=== PATIENT | female | born 1975 | race Two or more races ===

== ENCOUNTER 2017-09-22 12:28 | Inpatient (IN) | payer MEDICAID ==
[~2017-09-22] VITALS: Ht 157.5 cm; Wt 166.2 kg
[2017-09-22 13:30] LABS: BASOPHIL % 0.4 % (0-2); PLATELET COUNT 288 x10^3mcL (130-400)
[2017-09-22 13:31] LABS: RED CELL DISTRIBUTION WIDTH 21.8 % (11.5-14.5)
[2017-09-22 13:33] LABS: rbc morphology (normal/abnorm) ABNORMAL (NORMAL)
[2017-09-22 13:41] LABS: CALCIUM 8.5 mg/dL (8.5-10.1); CARBON DIOXIDE 28.2 mmol/L (21-32); CHLORIDE SERUM 100 mmol/L (98-107); CREATININE SERUM 0.8 mg/dL (0.6-1.0); GFR1 > 60 mL/min; GLUCOSE SERUM 276 mg/dL (74-106); POTASSIUM SERUM 3.7 mmol/L (3.5-5.1); SODIUM SERUM 136 mmol/L (136-145)
[2017-09-22 15:24] LABS: UA SPECIFIC GRAVITY >=1.030 (1.005-1.035); microscopic required? YES; urine erythrocyte 2+ (NEGATIVE)
[2017-09-22 15:26] VITALS: BP 133/51
[2017-09-22 15:33] VITALS: Ht 157.5 cm; Wt 166.2 kg
[2017-09-22 15:37] LABS: T3 TOTAL 1.17 ng/mL
[2017-09-22 15:41] LABS: AMPHETAMINE QUAL UR NONE DETECTED (See below)
[2017-09-22 15:42] LABS: RED BLOOD CELLS 2.96 M/mm3 (4.10-5.10)
[2017-09-22 15:58] LABS: MAGNESIUM 1.6 mg/dL (1.8-2.4); PHOSPHOROUS 3.4 mg/dL (2.5-4.9)
[2017-09-22 16:02] LABS: CHOLESTEROL/HDL RATIO 6.6
[2017-09-22 16:34] LABS: FREE T4 1.24 ng/dL (0.76-1.46); FREE THYROXINE INDEX 2.5 ug/dL (1.4-4.5)
[2017-09-22 16:45] VITALS: BP 109/56
[2017-09-22 17:08] LABS: IRON 8 ug/dL (50-170); TOTAL IRON BINDING CAPACITY 338 ug/dL (250-450)
[2017-09-22 22:02] VITALS: BP 116/70
[2017-09-23 01:57] LABS: BASOPHIL % 0.2 % (0-2); PLATELET COUNT 327 x10^3mcL (130-400)
[2017-09-23 02:14] LABS: RED CELL DISTRIBUTION WIDTH 24.8 % (11.5-14.5)
[2017-09-23 02:15] VITALS: BP 122/67
[2017-09-23 02:16] LABS: rbc morphology (normal/abnorm) ABNORMAL (NORMAL)
[2017-09-23 05:32] VITALS: BP 127/76
[2017-09-23 08:07] LABS: BASOPHIL % 1.4 % (0-2); PLATELET COUNT 310 x10^3mcL (130-400)
[2017-09-23 08:18] LABS: CARBON DIOXIDE 31.6 mmol/L (21-32); CHLORIDE SERUM 102 mmol/L (98-107); CREATININE SERUM 0.6 mg/dL (0.6-1.0); GFR1 > 60 mL/min; GLUCOSE SERUM 195 mg/dL (74-106); MAGNESIUM 1.9 mg/dL (1.8-2.4); PHOSPHOROUS 4.2 mg/dL (2.5-4.9); POTASSIUM SERUM 3.8 mmol/L (3.5-5.1); SODIUM SERUM 139 mmol/L (136-145)
[2017-09-23 08:20] LABS: RED CELL DISTRIBUTION WIDTH 24.8 % (11.5-14.5)
[2017-09-23 08:32] VITALS: BP 141/63
[2017-09-23 12:46] VITALS: BP 127/62
[2017-09-23 16:22] VITALS: BP 132/60
[2017-09-23] MEDS ORDERED: GLYBURIDE2.5 MG PO (17:03)
[2017-09-23] MEDS ORDERED: METFORMIN HYDR500 M1 PO (17:03)
[2017-09-23 20:30] VITALS: BP 134/83
[2017-09-23 21:51] LABS: BASOPHIL % 0.3 % (0-2); PLATELET COUNT 342 x10^3mcL (130-400)
[2017-09-23 21:55] LABS: RED CELL DISTRIBUTION WIDTH 26.5 % (11.5-14.5)
== END 2017-09-23 23:00 | disposition home or self-care (01) | DRG 532 ==
LOC: ED 12:28 → DU 14:34
PROVIDERS: Emergency Medicine; Internal Medicine
PROC: 30233N1 Transfusion of Nonautologous Red Blood Cells into Peripheral Vein, Percutaneous Approach (ICD-10-PCS; principal; 2017-09-22)
DX: N92.1 Excessive and frequent menstruation with irregular cycle (principal); N17.0 Acute kidney failure with tubular necrosis; E11.65 Type 2 diabetes mellitus with hyperglycemia; E83.42 Hypomagnesemia; E66.01 Morbid (severe) obesity due to excess calories; Z68.44 Body mass index [BMI] 60.0-69.9, adult; D50.0 Iron deficiency anemia secondary to blood loss (chronic); R55 Syncope and collapse
CPT/HCPCS: 82962; 83880; 84439; J2916; J7030; J7040; J7050; P9016; Q0092; Q0163